=== PATIENT | male | born 1975 | race African-American/Black ===

== ENCOUNTER 2016-06-30 15:37 | Inpatient (IN) | payer OTHER ==
[2016-06-30 18:52] VITALS: BMI 20.7
--- NOTE | 2016-06-30 19:34 | HP ---
Admission ROS S - [facility] Chief Complaint: I WANT TO GO TO REHAB Allergies/Adverse Reactions: Allergies Allergy/AdvReac Type Severity Reaction Status Date / Time No Known Drug Allergies Allergy Verified 06/30/16 20:11 History of Present Illness: 41 YEARS OLD MALE WITH LONG HISTORY OF K2 NICOTINE DEPENDENCE DENIES MEDICAL DENIES MENTAL ILLNESS IS ADMITTED TO REHAB Exam Limitations: No Limitations - Ebola screening Have you traveled outside of the country in the last 21 days: No Have you had contact with anyone from an Ebola affected area: No Have you been sick,other than usual withdrawal symptoms: No Do you have a fever: No - Review of Systems Constitutional: Loss of Appetite, Unintentional Wgt. Loss EENT: reports: No Symptoms Reported Respiratory: reports: No Symptoms reported Cardiac: reports: No Symptoms Reported GI: reports: No Symptoms Reported : reports: No Symptoms Reported Musculoskeletal: reports: No Symptoms Reported Integumentary: reports: No Symptoms Reported Neuro: reports: No Symptoms reported Endocrine: reports: No Symptoms Reported Hematology: reports: No Symptoms Reported Psychiatric: reports: Judgement Intact, Mood/Affect Appropiate, Orientated x3 Other Systems: Reviewed and Negative Patient History - Patient Medical History Hx Anemia: No Hx Asthma: No Hx Chronic Obstructive Pulmonary Disease (COPD): No Hx Cancer: No Hx Cardiac Disorders: No Hx Congestive Heart Failure: No Hx Hypertension: No Hx Hypercholesterolemia: No Hx Pacemaker: No HX Cerebrovascular Accident: No Hx Seizures: No Hx Dementia: No Hx Diabetes: No Hx Gastrointestinal Disorders: No Hx Liver Disease: No Hx Genitourinary Disorders: No Hx Sexually Transmitted Disorders: No Hx Renal Disease (ESRD): No Hx Thyroid Disease: No Hx Human Immunodeficiency Virus (HIV): No Hx Hepatitis C: No Hx Depression: No Hx Suicide Attempt: No Hx Bipolar Disorder: No Hx Schizophrenia: No - Patient Surgical History Past Surgical History: No - PPD History Previous Implant?: Yes Documented Results: Negative w/o proof Implanted On Prior [facility] Admission?: No PPD to be Administered?: Yes - Smoking Cessation Smoking history: Current every day smoker Have you smoked in the past 12 months: Yes Aproximately how many cigarettes per day: 20 Cigars Per Day: 0 Hx Chewing Tobacco Use: No Initiated information on smoking cessation: Yes 'Breaking Loose' booklet given: 06/30/16 - Substance & Tx. History Hx Alcohol Use: No Hx Substance Use: Yes Substance Use Type: Opiates Hx Substance Use Treatment: Yes - Substances Abused K2 Route: Smoking Frequency: Daily Amount used: BAG Age of first use: 39 Date of Last Use: 06/28/16 Family Disease History - Family Disease History Family History: Denies Admission Physical Exam [facility] - Vital Signs Vital Signs: Vital Signs - 24 hr 06/30/16 06/30/16 18:50 19:01 Temperature 98.1 F 98.1 F Pulse Rate 65 95 H Respiratory 18 18 Rate Blood Pressure 93/56 93/56 - Physical General Appearance: Yes: No Apparent Distress, Appropriately Dressed, Thin HEENTM: Yes: Hearing grossly Normal, Normal ENT Inspection, Normocephalic, Normal Voice Respiratory: Yes: Chest Non-Tender, Lungs Clear, Normal Breath Sounds, No Respiratory Distress, No Accessory Muscle Use Neck: Yes: Supple, Trachea in good position Breast: Yes: Breasts Symetrical Cardiology: Yes: Regular Rhythm, Regular Rate, S1, S2 Abdominal: Yes: Non Tender, Soft Genitourinary: Yes: Within Normal Limits Back: Yes: Normal Inspection Musculoskeletal: Yes: full range of Motion, Gait Steady Extremities: Yes: Within Normal Limits, Normal Inspection, Normal Range of Motion, Non-Tender Neurological: Yes: Fully Oriented, Alert, Motor Strength 5/5, Normal Mood/Affect , Normal Response Integumentary: Yes: Normal Color, Warm Lymphatic: Yes: Within Normal Limits - Diagnostic (1) Methadone maintenance therapy patient Current Visit: Yes Status: Acute Comment: 110 MG VERIFICATION PENDING (2) Nicotine dependence Current Visit: Yes Status: Acute Qualifiers: Nicotine product type: cigarettes Substance use status: uncomplicated Qualified Code(s): F17.210 - Nicotine dependence, cigarettes, uncomplicated (3) Weight loss Current Visit: Yes Status: Acute (4) Cannabis abuse, uncomplicated Current Visit: Yes Status: Acute Comment: K2 DEPENDENCE Cleared for Admission [facility] - Detox or Rehab [facility] Level of Care: Observation Bed Claeared for Rehab Admission: Yes [facility] Breath Alcohol Content Breath Alcohol Content: 0 Urine Drug Screen - Results Drug Screen Negative: No Urine Drug Screen Results: MTD-Methadone
[2016-06-30] MEDS ORDERED: LOPERAMIDE HCL 2 MG CAPSULE PO PRN (19:39)
[2016-06-30] MEDS ORDERED: P-EPHED 60MG/TRIPROLIDI 2.5MG TABLET PO PRN (19:39)
[2016-06-30] MEDS ORDERED: MAGNESIUM HYDROX 2400MG/30ML ORAL SUSPENSION 30 ML CUP PO PRN (19:39)
[2016-06-30] MEDS ORDERED: MAG HYDROX/AL HYDROX/SIMETH 30 ML UNIT-DOSE CUP PO PRN (19:39)
[2016-06-30] MEDS ORDERED: hydrOXYzine PAMOATE 50 MG CAPSULE (FP) PO PRN (19:39)
[2016-06-30] MEDS ORDERED: NICOTINE POLACRILEX 2 MG GUM BC PRN (19:39)
[2016-06-30] MEDS ORDERED: MENTHOL/PHENOL 1 EACH UD MM PRN (19:39)
[2016-06-30] MEDS ORDERED: guaiFENesin/D-METHORPHAN HB 10 ML UNIT-DOSE CUPS PO PRN (19:39)
[2016-06-30] MEDS ORDERED: ACETAMINOPHEN 325 MG TABLET (FP) PO PRN (19:39)
[2016-06-30] MEDS ORDERED: IBUPROFEN 400 MG TABLET (FP) PO PRN (19:39)
[2016-06-30] MEDS ORDERED: MAGNESIUM CITRATE 300 ML BOTTLE PO PRN (19:39)
[2016-06-30] MEDS: THIAMINE HCL 100 MG TABLET (FP) PO SCH (22:00)
[2016-06-30 23:19] LABS: URINE APPEARANCE CLEAR; URINE BILIRUBIN NEGATIVE (NEGATIVE); URINE BLOOD NEGATIVE (NEGATIVE); URINE COLOR YELLOW; URINE GLUCOSE (UA) NEGATIVE (NEGATIVE); URINE KETONE NEGATIVE (NEGATIVE); URINE LEUK ESTERASE 1+ (NEGATIVE); URINE NITRITE NEGATIVE (NEGATIVE); URINE PROTEIN NEGATIVE (NEGATIVE); URINE UROBILINOGEN NEGATIVE E.U./dl (0.2-1.0)
[2016-06-30 23:20] LABS: URINE BACTERIA RARE /hpf (NONE SEEN); URINE MUCUS RARE; URINE RBC 1 /hpf (0-3); URINE WBC 5 /hpf (3-5)
[2016-07-01] MEDS: METHADONE HCL 40 MG DISPERSABLE TABLET PO SCH (09:22)
[2016-07-01] MEDS: PRENATAL VITAMINS W/ FOLIC ACID TABLET (FP) PO SCH (09:23)
[2016-07-01] MEDS: NICOTINE 21 MG/24 HOURS TOPICAL PATCH TD SCH (09:23)
--- NOTE | 2016-07-01 13:43 | HP ---
Psychiatrist Admission - Data Date of interview: 07/01/16 Admission source: [facility] Identifying data: This is the second 5N inpatient rehabilitation admission for this 41 year old black male father of one, unemployed residing with his in the [place]. Medical History: on MMTP 120 mg. Psychiatric History: Patient reports history of psychiatric treatment two psychiatric hospitalizations, one at age of 18 when he started to hear voices telling him to hurt self, he tried to jump in front og the car, [facility], at agae of 24 admitted to the [facility] following overdose with medications, treated with seroquel, zyprexa in the past, currently on seroquel 200 mg po hs reports he sees the psychiatrist at [facility]. Dx. as schizoaffective Physical/Sexual Abuse/Trauma History: Denies history of sexual, physical and v erbal abuse. Vital Signs: Vital Signs - 24 hr 06/30/16 06/30/16 06/30/16 18:50 19:01 20:48 Temperature 98.1 F 98.1 F Pulse Rate 65 95 H 63 Respiratory 18 18 18 Rate Blood Pressure 93/56 93/56 110/70 07/01/16 07/01/16 07/01/16 02:03 03:30 06:53 Temperature 97.2 F L Pulse Rate 73 Respiratory 18 18 18 Rate Blood Pressure 119/89 Allergies/Adverse Reactions: Allergies Allergy/AdvReac Type Severity Reaction Status Date / Time No Known Drug Allergies Allergy Verified 06/30/16 20:11 Date of last physical exam: 06/30/16 Concur with the findings of this exam: Yes - Substance Abuse/Tx History Hx Alcohol Use: No Hx Substance Use: Yes (k2) Substance Use Type: Heroin (last usesd 9 months ago) Hx Substance Use Treatment: Yes - Admission Criteria Previous failed treatment: Yes Poor recovery environment: Yes Comorbidities: Yes Lacks judgement: Yes Mental Status Exam - Mental Status Exam Alert and Oriented to: Time, Place, Person Cognitive Function: Grossly Intact Patient Appearance: Well Groomed Mood: Irritable Affect: Constricted Patient Behavior: Guarded, Cooperative Speech Pattern: Appropriate Voice Loudness: Normal Thought Process: Goal Oriented Thought Disorder: Not Present Hallucinations: Denies Suicidal Ideation: Denies Homicidal Ideation: Denies Insight/Judgement: Fair Sleep: Poorly, Difficulty falling asleep Appetite: Fair Muscle strength/Tone: Normal Gait/Station: Normal Psychiatric Findings - Problem List ([place] 1, 2,3) (1) Cannabis abuse, uncomplicated Current Visit: Yes Status: Acute Comment: K2 DEPENDENCE (2) Methadone maintenance therapy patient Current Visit: Yes Status: Acute Comment: 110 MG VERIFICATION PENDING (3) Nicotine dependence Current Visit: Yes Status: Acute Qualifiers: Nicotine product type: cigarettes Substance use status: uncomplicated Qualified Code(s): F17.210 - Nicotine dependence, cigarettes, uncomplicated (4) Schizoaffective disorder Current Visit: Yes Status: Acute - Initial Treatment Plan Initial Treatment Plan: will continue seroquel , monitor progress as needed.
[2016-07-01 14:32] LABS: ANION GAP -1 (8-16); CO2 32 mmol/L (21-32); GLUCOSE,RANDOM 83 mg/dL (74-106)
[2016-07-01 14:33] LABS: ALBUMIN 4.4 g/dl (3.4-5.0); BILIRUBIN,TOTAL 0.3 mg/dL (0.2-1.0); CALCIUM 9.8 mg/dL (8.5-10.1); SGOT/AST 17 U/L (15-37); SGPT/ALT 20 U/L (12-78); TOT PROT 7.4 g/dl (6.4-8.2)
[2016-07-01 14:34] LABS: ALK PHOS 78 U/L (45-117)
[2016-07-01 14:35] LABS: MCH 30.4 pg (25.7-33.7); MCHC 33.3 g/dl (32.0-35.9); MEAN CELL VOLUME 91.2 fl (80-96); MEAN PLT VOLUME 10.1 fl (7.5-11.1); RDW 13.8 % (11.9-15.9); WHITE BLOOD COUNT 7.1 K/mm3 (4.0-10.0)
[2016-07-01 15:44] LABS: PLATELET COMMENT2 MOD LARGE PLTS; PLATELET COUNT 211 K/MM3 (134-434)
[2016-07-01] MEDS: THIAMINE HCL 100 MG TABLET (FP) PO SCH (21:32)
[2016-07-01] MEDS: QUEtiapine FUMARATE 200 MG TABLET PO SCH (21:32)
[2016-07-02] MEDS: METHADONE HCL 40 MG DISPERSABLE TABLET PO SCH (06:36)
[2016-07-02] MEDS: PRENATAL VITAMINS W/ FOLIC ACID TABLET (FP) PO SCH (10:14)
[2016-07-02] MEDS: NICOTINE 21 MG/24 HOURS TOPICAL PATCH TD SCH (10:15)
[2016-07-02] MEDS: THIAMINE HCL 100 MG TABLET (FP) PO SCH (21:09)
[2016-07-02] MEDS: QUEtiapine FUMARATE 200 MG TABLET PO SCH (21:09)
[2016-07-03] MEDS: METHADONE HCL 40 MG DISPERSABLE TABLET PO SCH (06:49)
[2016-07-03] MEDS: NICOTINE 21 MG/24 HOURS TOPICAL PATCH TD SCH (10:09)
[2016-07-03] MEDS: PRENATAL VITAMINS W/ FOLIC ACID TABLET (FP) PO SCH (10:10)
[2016-07-03] MEDS: QUEtiapine FUMARATE 200 MG TABLET PO SCH (21:01)
[2016-07-03] MEDS: THIAMINE HCL 100 MG TABLET (FP) PO SCH (21:02)
[2016-07-03] MEDS ORDERED: diphenhydrAMINE HCL 25 MG CAPSULE (FP) PO ONE ×2 (21:03)
[2016-07-04] MEDS: METHADONE HCL 40 MG DISPERSABLE TABLET PO SCH (06:42)
[2016-07-04] MEDS: NICOTINE 21 MG/24 HOURS TOPICAL PATCH TD SCH (10:33)
[2016-07-04] MEDS: PRENATAL VITAMINS W/ FOLIC ACID TABLET (FP) PO SCH (10:33)
[2016-07-04] MEDS: THIAMINE HCL 100 MG TABLET (FP) PO SCH (21:06)
[2016-07-04] MEDS: QUEtiapine FUMARATE 200 MG TABLET PO SCH (21:06)
[2016-07-04] MEDS: diphenhydrAMINE HCL 50 MG CAPSULE PO PRN (21:07)
[2016-07-04] MEDS ORDERED: COLLOIDAL OATMEAL 1 BAR EACH TP PRN (22:33)
[2016-07-05] MEDS: METHADONE HCL 40 MG DISPERSABLE TABLET PO SCH (06:16)
[2016-07-05] MEDS: PRENATAL VITAMINS W/ FOLIC ACID TABLET (FP) PO SCH (09:46)
[2016-07-05] MEDS: NICOTINE 21 MG/24 HOURS TOPICAL PATCH TD SCH (09:46)
[2016-07-05] MEDS: THIAMINE HCL 100 MG TABLET (FP) PO SCH (21:43)
[2016-07-05] MEDS: QUEtiapine FUMARATE 200 MG TABLET PO SCH (21:43)
[2016-07-05] MEDS: diphenhydrAMINE HCL 50 MG CAPSULE PO PRN (21:43)
[2016-07-06] MEDS: METHADONE HCL 40 MG DISPERSABLE TABLET PO SCH (05:56)
[2016-07-06] MEDS: PRENATAL VITAMINS W/ FOLIC ACID TABLET (FP) PO SCH (10:14)
[2016-07-06] MEDS: NICOTINE 21 MG/24 HOURS TOPICAL PATCH TD SCH (10:14)
[2016-07-06] MEDS: diphenhydrAMINE HCL 50 MG CAPSULE PO PRN (21:03)
[2016-07-06] MEDS: QUEtiapine FUMARATE 200 MG TABLET PO SCH (21:03)
[2016-07-06] MEDS: THIAMINE HCL 100 MG TABLET (FP) PO SCH (21:04)
[2016-07-07] MEDS: METHADONE HCL 40 MG DISPERSABLE TABLET PO SCH (06:11)
[2016-07-07] MEDS: PRENATAL VITAMINS W/ FOLIC ACID TABLET (FP) PO SCH (09:57)
[2016-07-07] MEDS: NICOTINE 21 MG/24 HOURS TOPICAL PATCH TD SCH (09:58)
[2016-07-07] MEDS: THIAMINE HCL 100 MG TABLET (FP) PO SCH (21:02)
[2016-07-07] MEDS: QUEtiapine FUMARATE 200 MG TABLET PO SCH (21:02)
[2016-07-07] MEDS: diphenhydrAMINE HCL 50 MG CAPSULE PO PRN (21:03)
[2016-07-08] MEDS: METHADONE HCL 40 MG DISPERSABLE TABLET PO SCH (05:58)
[2016-07-08] MEDS: NICOTINE 21 MG/24 HOURS TOPICAL PATCH TD SCH (09:55)
[2016-07-08] MEDS: PRENATAL VITAMINS W/ FOLIC ACID TABLET (FP) PO SCH (09:55)
[2016-07-08] MEDS: QUEtiapine FUMARATE 200 MG TABLET PO SCH (21:03)
[2016-07-08] MEDS: THIAMINE HCL 100 MG TABLET (FP) PO SCH (21:03)
[2016-07-08] MEDS: diphenhydrAMINE HCL 50 MG CAPSULE PO PRN (21:03)
[2016-07-09] MEDS: METHADONE HCL 40 MG DISPERSABLE TABLET PO SCH (06:07)
[2016-07-09] MEDS: PRENATAL VITAMINS W/ FOLIC ACID TABLET (FP) PO SCH (09:57)
[2016-07-09] MEDS: NICOTINE 21 MG/24 HOURS TOPICAL PATCH TD SCH (09:57)
[2016-07-09] MEDS: THIAMINE HCL 100 MG TABLET (FP) PO SCH (21:05)
[2016-07-09] MEDS: QUEtiapine FUMARATE 200 MG TABLET PO SCH (21:05)
[2016-07-09] MEDS: diphenhydrAMINE HCL 50 MG CAPSULE PO PRN (21:06)
[2016-07-10] MEDS: METHADONE HCL 40 MG DISPERSABLE TABLET PO SCH (06:15)
[2016-07-10] MEDS: PRENATAL VITAMINS W/ FOLIC ACID TABLET (FP) PO SCH (09:57)
[2016-07-10] MEDS: NICOTINE 21 MG/24 HOURS TOPICAL PATCH TD SCH (09:57)
[2016-07-10] MEDS: QUEtiapine FUMARATE 200 MG TABLET PO SCH (21:17)
[2016-07-10] MEDS: THIAMINE HCL 100 MG TABLET (FP) PO SCH (21:17)
[2016-07-10] MEDS: diphenhydrAMINE HCL 50 MG CAPSULE PO PRN (21:18)
[2016-07-11] MEDS: METHADONE HCL 40 MG DISPERSABLE TABLET PO SCH (06:14)
[2016-07-11] MEDS: PRENATAL VITAMINS W/ FOLIC ACID TABLET (FP) PO SCH (10:20)
[2016-07-11] MEDS: NICOTINE 21 MG/24 HOURS TOPICAL PATCH TD SCH (10:20)
[2016-07-11] MEDS: THIAMINE HCL 100 MG TABLET (FP) PO SCH (21:13)
[2016-07-11] MEDS: QUEtiapine FUMARATE 200 MG TABLET PO SCH (21:13)
[2016-07-11] MEDS: diphenhydrAMINE HCL 50 MG CAPSULE PO PRN (21:14)
[2016-07-12] MEDS: METHADONE HCL 40 MG DISPERSABLE TABLET PO SCH (06:03)
[2016-07-12] MEDS: PRENATAL VITAMINS W/ FOLIC ACID TABLET (FP) PO SCH (10:36)
[2016-07-12] MEDS: NICOTINE 21 MG/24 HOURS TOPICAL PATCH TD SCH (10:36)
[2016-07-12] MEDS: QUEtiapine FUMARATE 200 MG TABLET PO SCH (21:12)
[2016-07-12] MEDS: THIAMINE HCL 100 MG TABLET (FP) PO SCH (21:12)
[2016-07-12] MEDS: diphenhydrAMINE HCL 50 MG CAPSULE PO PRN (21:13)
[2016-07-13] MEDS: METHADONE HCL 40 MG DISPERSABLE TABLET PO SCH (06:07)
[2016-07-13] MEDS: PRENATAL VITAMINS W/ FOLIC ACID TABLET (FP) PO SCH (10:38)
[2016-07-13] MEDS: NICOTINE 21 MG/24 HOURS TOPICAL PATCH TD SCH (10:39)
[2016-07-13] MEDS: THIAMINE HCL 100 MG TABLET (FP) PO SCH (21:07)
[2016-07-13] MEDS: QUEtiapine FUMARATE 200 MG TABLET PO SCH (21:07)
[2016-07-13] MEDS: diphenhydrAMINE HCL 50 MG CAPSULE PO PRN (21:08)
[2016-07-14] MEDS: METHADONE HCL 40 MG DISPERSABLE TABLET PO SCH (06:47)
[2016-07-14] MEDS: PRENATAL VITAMINS W/ FOLIC ACID TABLET (FP) PO SCH (10:20)
[2016-07-14] MEDS: NICOTINE 21 MG/24 HOURS TOPICAL PATCH TD SCH (10:21)
[2016-07-14] MEDS: diphenhydrAMINE HCL 50 MG CAPSULE PO PRN (21:43)
[2016-07-14] MEDS: THIAMINE HCL 100 MG TABLET (FP) PO SCH (21:43)
[2016-07-14] MEDS: QUEtiapine FUMARATE 200 MG TABLET PO SCH (21:43)
[2016-07-15] MEDS: METHADONE HCL 40 MG DISPERSABLE TABLET PO SCH (06:02)
[2016-07-15 06:49] VITALS: BP 115/76; PULSE 78; TEMP 98
[2016-07-15] MEDS: PRENATAL VITAMINS W/ FOLIC ACID TABLET (FP) PO SCH (10:16)
[2016-07-15] MEDS: NICOTINE 21 MG/24 HOURS TOPICAL PATCH TD SCH (10:16)
--- NOTE | 2016-07-15 10:41 | PN ---
Psychiatric Progress Note Vital Signs: Vital Signs Period Temp Pulse Resp BP Sys/Lopez Pulse Ox Last 24 Hr 98.0 F 78 18-18 115/76 Date of Session: 07/15/16 Chief Complaint:: discharge visit HPI: The patient has addressed cannabis, nicotine dependence, Schizoaffective dsorder. ROS: WNL Current Medications: Active Medications Generic Name Dose Route Start Last Admin Trade Name Freq PRN Reason Stop Dose Admin Acetaminophen 650 mg 06/30/16 19:39 Tylenol - PO Q4H PRN PAIN Al Hydroxide/Mg Hydroxide 30 ml 06/30/16 19:39 Mylanta Oral Suspension - PO Q6H PRN DYSPEPSIA Colloidal Oatmeal 1 applic 07/04/16 22:33 07/04/16 22:51 Aveeno Soap - TP 1 applic DAILY PRN Administration HYGEINE Diphenhydramine HCl 50 mg 06/30/16 19:39 07/14/16 21:43 Benadryl - PO 50 mg HSMR1 PRN Administration INSOMNIA Eucalyptus/Menthol/Phenol/Sorbitol 1 each 06/30/16 19:39 Cepastat Lozenge - MM Q4H PRN SORE THROAT Guaifenesin 10 ml 06/30/16 19:39 Robitussin Dm - PO Q6H PRN COUGH Hydroxyzine Pamoate 50 mg 06/30/16 19:39 Vistaril - PO Q4H PRN AGITATION Ibuprofen 400 mg 06/30/16 19:39 Motrin - PO Q6H PRN SEVERE PAIN Loperamide HCl 4 mg 06/30/16 19:39 Imodium - PO Q6H PRN DIARRHEA Magnesium Citrate 300 ml 06/30/16 19:39 Citroma - PO Q48H PRN CONSTIPATION Magnesium Hydroxide 30 ml 06/30/16 19:39 Milk Of Magnesia - PO DAILY PRN CONSTIPATION Methadone HCl 120 mg 07/14/16 06:00 07/15/16 06:02 Dolophine - PO 120 mg DAILY@0600 BULL Administration Nicotine 21 mg 07/01/16 10:00 07/15/16 10:16 Nicoderm Patch - TD Not Given DAILY BULL Nicotine Polacrilex 2 mg 06/30/16 19:39 Nicorette Gum - BC Q2H PRN NICOTINE REPLACEMENT RX Multivit/Folic Acid/Iron 1 tab 07/01/16 10:00 07/15/16 10:16 Vitamins ([facility]) - PO 1 tab DAILY BULL Administration Pseudoephedrine/Triprolidine 1 combo 06/30/16 19:39 Actifed - PO TID PRN NASAL CONGESTION Quetiapine Fumarate 200 mg 07/01/16 22:00 07/14/16 21:43 Seroquel - PO 200 mg HS BULL Administration Thiamine HCl 100 mg 06/30/16 22:00 07/14/16 21:43 Vitamin B1 - PO 100 mg HS BULL Administration Current Side Effect: No Lab tests ordered: No Lab tests reviewed: Yes Provider note:: Patient has completed today his treatment and met his identified goals, will continue to address his issues at [facility], he verbalized understanding of the negative consequences of his addiction and reports that he will apply the tools he has learned through this treatment in order to maintain abstinence. He responded well to Seroquel 200 mg HS. Scripts for 30 days supply electronically transmitted to his pharmacy, patient is stable for discharge today. Total face to face time:: 35 Mental Status Exam - Mental Status Exam Alert and Oriented to: Time, Place, Person Cognitive Function: Good Patient Appearance: Well Groomed Mood: Hopeful Affect: Appropriate, Mood Congruent Patient Behavior: Appropriate, Cooperative Speech Pattern: Clear, Appropriate Voice Loudness: Normal Thought Process: Intact, Goal Oriented Thought Disorder: Not Present Hallucinations: Denies Suicidal Ideation: Denies Homicidal Ideation: Denies Insight/Judgement: Fair Sleep: Fair Appetite: Fair Muscle strength/Tone: Normal Gait/Station: Normal Psychiatric Treatment Plan - Problem List (1) Cannabis abuse, uncomplicated Comment: K2 DEPENDENCE (2) Methadone maintenance therapy patient Comment: 110 MG VERIFICATION PENDING (3) Nicotine dependence Qualifiers: Nicotine product type: cigarettes Substance use status: uncomplicated Qualified Code(s): F17.210 - Nicotine dependence, cigarettes, uncomplicated
== END 2016-07-15 10:45 | disposition home or self-care (01) | DRG 772 ==
LOC: YASAS 15:37 → Y5N 19:30
PROVIDERS: ADMIT Psychiatry & Neurology Psychiatry; ATTEND Psychiatry & Neurology Psychiatry
PROC: HZ42ZZZ Group Counseling for Substance Abuse Treatment, Cognitive-Behavioral (ICD-10-PCS; principal; 2016-06-30)
DX: F12.10 Cannabis abuse, uncomplicated (principal); F11.20 Opioid dependence, uncomplicated; F17.210 Nicotine dependence, cigarettes, uncomplicated; F25.9 Schizoaffective disorder, unspecified
CPT/HCPCS: 36415; 80053; 81003; 81015; 85027; 86593; 93005; 93010